=== PATIENT | female | born 1980 | race Caucasian/White ===

== ENCOUNTER 2024-05-06 19:33 | Emergency (ER) | payer OTHER ==
[~2024-05-06] VITALS: Ht 170.2 cm; Wt 63.5 kg
[2024-05-06 20:08] VITALS: BP_SYST 113; PULSE 108; RESP 20; TEMP 98.1; O2SAT 100
[2024-05-06] MEDS: ONDANSETRON HCL 4 MG/2 ML VIAL IVP ONE (21:00)
[2024-05-06] MEDS: NACL 0.9% 1,000 ML IV ONE (21:00)
[2024-05-06 22:00] LABS: BASOPHILS % (AUTO) 0.4 % (0.0-2.0); EOSINOPHILS % (AUTO) 0.1 % (0.0-4.0); HEMOGLOBIN 14.1 g/dL (12.0-16.0); LYMPHOCYTES # (AUTO) 2.7 K/uL (1.0-5.5); LYMPHOCYTES % (AUTO) 23.5 % (20.5-51.5); MEAN CORPUSCULAR HEMOGLOBIN 33 pg (27-31); MEAN CORPUSCULAR HGB CONC 35 % (32-36); MEAN CORPUSCULAR VOLUME 97 fL (79.0-98.0); MONOCYTES # (AUTO) 0.4 K/uL (0.0-1.0); MONOCYTES % (AUTO) 3.1 % (1.7-9.3); NEUTROPHILS # (AUTO) 8.3 K/uL (1.8-7.7); NEUTROPHILS % (AUTO) 72.9 % (40.0-70.0); PLATELET COUNT (AUTO) 251 K/uL (130-430); RED BLOOD CELL COUNT(AUTO) 4.24 MIL/uL (4.2-6.2); WHITE BLOOD COUNT (AUTO) 11.4 K/uL (4.8-10.8)
[2024-05-06 22:31] LABS: ALBUMIN 3.8 g/dL (3.4-4.8); CALCIUM 8.4 mg/dL (8.4-11.0); CREATININE 1.05 mg/dL (0.55-1.30); POTASSIUM 3.8 mmol/L (3.5-5.1); TOTAL BILIRUBIN 0.4 mg/dL (0.0-1.0); TOTAL PROTEIN, SERUM 7.1 g/dL (6.4-8.3)
[2024-05-06 22:33] LABS: BILIRUBIN,DIRECT 0.1 mg/dL (0.0-0.3)
[2024-05-07 04:17] VITALS: BP_SYST 102; PULSE 90; RESP 23; TEMP 99; O2SAT 97
== END 2024-05-07 04:17 | disposition home or self-care (01) ==
LOC: SED 19:33
DX: F10.129 Alcohol abuse with intoxication, unspecified (principal); R53.1 Weakness; F17.200 Nicotine dependence, unspecified, uncomplicated; Z59.00 Homelessness unspecified; Y90.6 Blood alcohol level of 120-199 mg/100 ml
CPT/HCPCS: 99283; 80076; 80048; 85025; 36415; G0482